=== PATIENT | female | born 1980 ===

== ENCOUNTER 2017-01-09 08:00 | Outpatient (CLI) | payer MEDICAID ==
[2017-01-09 13:23] LABS: BASOPHILS # (AUTO) 0.1 10^3/uL (0.0-0.1); BASOPHILS % (AUTO) 0.8 %; EOSINOPHILS # (AUTO) 0.3 10^3/uL (0.0-0.7); HGB - HEMOGLOBIN 11.4 g/dL (12.0-16.0); LYMPHOCYTES # (AUTO) 1.7 10^3/uL (1.5-3.5); LYMPHOCYTES % (AUTO) 18.8 %; MEAN CORPUSCULAR HEMOGLOBIN 26.5 pg (27.0-31.0); MEAN CORPUSCULAR HGB CONC 32.6 g/dL (32.0-36.0); MEAN CORPUSCULAR VOLUME 81.2 fL (81.0-99.0); MEAN PLATELET VOLUME 8.1 fL (7.9-10.8); MONOCYTES # (AUTO) 0.8 10^3/uL (0.0-1.0); MONOCYTES % (AUTO) 9.2 %; NEUTROPHILS # (AUTO) 6.2 10^3/uL (1.5-6.6); NEUTROPHILS % (AUTO) 68.2 %; RED BLOOD COUNT 4.31 10^6/uL (4.20-5.40); RED CELL DISTRIBUTION WIDTH 16.1 % (12.0-15.0); UNCORRECTED WHITE BLOOD COUNT 9.1 x10^3/uL; WHITE BLOOD COUNT 9.1 x10^3/uL (4.8-10.8)
[2017-01-09 13:42] LABS: THYROID STIMULATING HORMONE 3.02 uIU/mL (0.34-5.60)
[2017-01-09 13:43] LABS: ALBUMIN/GLOBULIN RATIO 1.1 (1.0-2.2); BILIRUBIN,TOTAL 0.2 mg/dL (0.2-1.0); BUN - BLOOD UREA NITROGEN 15 mg/dL (6-20); CARBON DIOXIDE - CO2 20 mmol/L (21-32); CHLORIDE 106 mmol/L (101-111); CHOL/HDL RATIO 7.6 (<4.4); CHOLESTEROL 205 mg/dL; CREATININE 0.7 mg/dL (0.4-1.0); GFR - MDRD 94 (>89); GLUCOSE 94 mg/dL (70-100); HDL CHOLESTEROL 27 mg/dL; LDL/HDL RATIO 3.9 (<4.4); POTASSIUM 4.1 mmol/L (3.5-5.0); SODIUM 133 mmol/L (135-145); TOTAL PROTEIN 7.8 g/dL (6.7-8.2); TRIGLYCERIDES 372 mg/dL; VLDL CHOLESTEROL 74 mg/dL
[2017-01-11 18:36] LABS: ANA SCREEN POSITIVE (NEGATIVE)
== END 2017-01-09 08:01 | disposition home or self-care (01) ==
LOC: LAB.N 08:00
PROVIDERS: ATTEND Family Medicine
DX: E66.9 Obesity, unspecified (principal); E03.9 Hypothyroidism, unspecified; D89.89 Other specified disorders involving the immune mechanism, not elsewhere classified
CPT/HCPCS: 36415; 80053; 80061; 84439; 84443; 85025; 85651; 86038

== ENCOUNTER 2017-11-10 08:00 | Outpatient (CLI) | payer MEDICAID ==
[2017-11-10 13:32] LABS: ALBUMIN 4.3 g/dL (3.2-5.5); ALBUMIN/GLOBULIN RATIO 1.2 (1.0-2.2); BILIRUBIN,TOTAL 0.5 mg/dL (0.2-1.0); CALCIUM 9.2 mg/dL (8.5-10.3); CREATININE 0.8 mg/dL (0.4-1.0); TOTAL PROTEIN 7.9 g/dL (6.7-8.2); URIC ACID 4.8 mg/dL (2.6-7.2)
[2017-11-10 13:57] LABS: BASOPHILS # (AUTO) 0.1 10^3/uL (0.0-0.1); BASOPHILS % (AUTO) 0.9 %; EOSINOPHILS # (AUTO) 0.3 10^3/uL (0.0-0.7); EOSINOPHILS % (AUTO) 3.7 %; HGB - HEMOGLOBIN 13.2 g/dL (12.0-16.0); LYMPHOCYTES # (AUTO) 1.5 10^3/uL (1.5-3.5); LYMPHOCYTES % (AUTO) 19.2 %; MEAN CORPUSCULAR HEMOGLOBIN 30.3 pg (27.0-31.0); MEAN CORPUSCULAR HGB CONC 34.6 g/dL (32.0-36.0); MEAN CORPUSCULAR VOLUME 87.5 fL (81.0-99.0); MEAN PLATELET VOLUME 7.9 fL (7.9-10.8); MONOCYTES # (AUTO) 0.7 10^3/uL (0.0-1.0); MONOCYTES % (AUTO) 8.9 %; NEUTROPHILS # (AUTO) 5.2 10^3/uL (1.5-6.6); NEUTROPHILS % (AUTO) 67.3 %; PLT - PLATELET COUNT 334 10^3/uL (130-450); RED BLOOD COUNT 4.36 10^6/uL (4.20-5.40); RED CELL DISTRIBUTION WIDTH 14.6 % (12.0-15.0); WHITE BLOOD COUNT 7.7 x10^3/uL (4.8-10.8)
== END 2017-11-10 08:01 ==
LOC: LAB.N 08:00
PROVIDERS: ATTEND Family Medicine
DX: E78.1 Pure hyperglyceridemia (principal); M25.50 Pain in unspecified joint; E66.9 Obesity, unspecified
CPT/HCPCS: 36415; 80053; 84550; 85025

== ENCOUNTER 2018-01-29 19:43 | Emergency (ER) | payer MEDICAID ==
--- NOTE | 2018-01-29 20:08 | ED Physician Documentation ---
PD HPI CHEST PAIN - Stated complaint Stated Complaint: CHEST PX - Chief complaint Chief Complaint: Cardiac - History obtained from History obtained from: Patient - History of Present Illness Timing - onset: Yesterday Timing - details: Gradual onset, Waxing and waning Pain level now: 5 Quality: Pressure Location: Substernal Radiation: Back Improved by: Nothing Worsened by: Other (no exacerbating factors) Associated symptoms: Shortness of air, Nausea. No: Vomiting, Palpitations Recently seen: Not recently seen - Additional information Additional information: c/o chest pain since yesterday, radiates to back. Also has several other c/o that have been intermittent x 1 week: nausea, "feeling disconnected" (per patient), diffuse joint pain, back pain, dyspnea. She says she is waiting for a rheumatology referral from [facility] for still other, recurrent symptoms (x many years). Review of Systems Constitutional: reports: Myalgias, Fatigue. denies: Fever, Chills, Sweats Cardiac: reports: Chest pain / pressure. denies: Palpitations, Pedal edema, Calf pain Respiratory: reports: Dyspnea. denies: Cough, Wheezing GI: reports: Nausea. denies: Abdominal Pain, Vomiting : denies: Dysuria, Frequency Skin: denies: Rash Musculoskeletal: reports: Back pain, Joint pain Neurologic: reports: Generalized weakness. denies: Focal weakness, Numbness, Headache PD PAST MEDICAL HISTORY - Past Medical History Past Medical History: No - Past Surgical History Past Surgical History: No - Present Medications Home Medications: Ambulatory Orders Medication Instructions Recorded Confirmed Ibuprofen [Ibu] PRN 01/29/18 raNITIdine [Zantac] PRN PRN 01/29/18 - Allergies Allergies/Adverse Reactions: Allergies Allergy/AdvReac Type Severity Reaction Status Date / Time naproxen Allergy Edema Verified 01/29/18 19:53 codeine AdvReac Unknown Verified 01/29/18 19:53 - Living Situation Living Arrangement: reports: At home PD ED PE NORMAL - Vitals Vital signs reviewed: Yes - General General: Alert and oriented X 3, No acute distress, Well developed/nourished - HEENT HEENT: PERRL, EOMI, Moist mucous membranes - Neck Neck: Supple, no meningeal sign - Cardiac Cardiac: RRR, No murmur, No gallop, No rub - Respiratory Respiratory: No respiratory distress, Clear bilaterally - Abdomen Abdomen: Soft, Non tender - Back Back: No CVA TTP - Derm Derm: Normal color, Warm and dry - Extremities Extremities: No edema - Neuro Neuro: Alert and oriented X 3, metal baler 2-12 intact, No motor deficit, No sensory deficit, Normal speech Eye Opening: Spontaneous Motor: Obeys Commands Verbal: Oriented GCS Score: 15 Results - Vitals Vitals: Vital Signs - 24 hr 01/29/18 01/29/18 01/29/18 19:50 21:12 21:36 Temperature 36.8 C Heart Rate 73 62 66 Respiratory 16 16 18 Rate Blood Pressure 186/113 H 146/95 H 133/92 H O2 Saturation 100 99 98 Oxygen O2 Source Room air - EKG (time done) No standard instances Rate: Rate (enter#) (70) Rhythm: NSR [place]: Normal Intervals: Normal NM QRS: Normal Ischemia: Normal ST segments - Labs Labs: Laboratory Tests 01/29/18 01/29/18 01/29/18 20:10 20:10 20:10 WBC 8.6 RBC 3.84 L Hgb 12.2 Hct 34.3 L MCV 89.2 MCH 31.9 H MCHC 35.7 RDW 14.2 Plt Count 317 MPV 7.3 L Neut # (Auto) 5.3 Lymph # (Auto) 2.0 [place] # (Auto) 1.0 Eos # (Auto) 0.3 Baso # (Auto) 0.1 Absolute Nucleated RBC 0.01 Nucleated RBC % 0.1 D-Dimer Sodium 135 Potassium 3.4 L Chloride 106 Carbon Dioxide 21 Anion Gap 8.0 BUN 16 Creatinine 0.7 Estimated GFR (MDRD) 93 Glucose 96 Calcium 10.2 Total Bilirubin 0.3 AST 21 ALT 17 Alkaline Phosphatase 74 Troponin I < 0.04 Total Protein 7.6 Albumin 4.4 Globulin 3.2 Albumin/Globulin Ratio 1.4 Lipase 51 HCG, Quant Urine Color Urine Clarity Urine pH Ur Specific Eastern Urine Protein Urine Glucose (UA) Urine Ketones Urine Occult Blood Urine Nitrite Urine Bilirubin Urine Urobilinogen Ur Leukocyte Esterase Urine RBC Urine WBC Ur Squamous Epith Cells Urine Bacteria Ur Microscopic Review Urine Culture Comments 01/29/18 01/29/18 01/29/18 20:10 20:18 20:20 WBC RBC Hgb Hct MCV MCH MCHC RDW Plt Count MPV Neut # (Auto) Lymph # (Auto) [place] # (Auto) Eos # (Auto) Baso # (Auto) Absolute Nucleated RBC Nucleated RBC % D-Dimer 234.5 Sodium Potassium Chloride Carbon Dioxide Anion Gap BUN Creatinine Estimated GFR (MDRD) Glucose Calcium Total Bilirubin AST ALT Alkaline Phosphatase Troponin I Total Protein Albumin Globulin Albumin/Globulin Ratio Lipase HCG, Quant 0.73 Urine Color YELLOW Urine Clarity CLEAR Urine pH 6.0 Ur Specific Eastern 1.015 Urine Protein NEGATIVE Urine Glucose (UA) NEGATIVE Urine Ketones NEGATIVE Urine Occult Blood LARGE H Urine Nitrite NEGATIVE Urine Bilirubin NEGATIVE Urine Urobilinogen 0.2 (NORMAL) Ur Leukocyte Esterase NEGATIVE Urine RBC 0-5 Urine WBC 0-3 Ur Squamous Epith Cells FEW Squamous Urine Bacteria Few Ur Microscopic Review INDICATED Urine Culture Comments NOT INDICATED - Rads (name of study) chest xray Radiology: Prelim report reviewed, See rad report PD MEDICAL DECISION MAKING - ED course Complexity details: reviewed results, re-evaluated patient, considered differential, d/w patient Departure - Departure Disposition: 01 Home, Self Care Clinical Impression: Chest pain Condition: Good Instructions: ED Chest Pain Atypical Unkn Cause Follow-Up: Cherrie Jorgensen PA-C [Primary Care Provider] - (Call in the morning to arrange for next available appointment) Discharge Date/Time: 01/29/18 21:44
[2018-01-29 20:33] LABS: BASOPHILS # (AUTO) 0.1 10^3/uL (0.0-0.1); BASOPHILS % (AUTO) 0.9 %; EOSINOPHILS # (AUTO) 0.3 10^3/uL (0.0-0.7); EOSINOPHILS % (AUTO) 3.1 %; HGB - HEMOGLOBIN 12.2 g/dL (12.0-16.0); LYMPHOCYTES % (AUTO) 23.7 %; MEAN CORPUSCULAR HEMOGLOBIN 31.9 pg (27.0-31.0); MEAN CORPUSCULAR HGB CONC 35.7 g/dL (32.0-36.0); MEAN CORPUSCULAR VOLUME 89.2 fL (81.0-99.0); MEAN PLATELET VOLUME 7.3 fL (7.9-10.8); MONOCYTES % (AUTO) 11.2 %; NEUTROPHILS # (AUTO) 5.3 10^3/uL (1.5-6.6); NEUTROPHILS % (AUTO) 61.1 %; PLT - PLATELET COUNT 317 10^3/uL (130-450); RED BLOOD COUNT 3.84 10^6/uL (4.20-5.40); RED CELL DISTRIBUTION WIDTH 14.2 % (12.0-15.0); WHITE BLOOD COUNT 8.6 x10^3/uL (4.8-10.8)
[2018-01-29 20:39] LABS: BILIRUBIN,URINE NEGATIVE (NEGATIVE); GLUCOSE, URINE (UA) NEGATIVE (NEGATIVE); KETONES,URINE (UA) NEGATIVE (NEGATIVE); LEUKOCYTE ESTERASE, URINE NEGATIVE (NEGATIVE); NITRITE,URINE NEGATIVE (NEGATIVE); OCCULT BLOOD,URINE LARGE (NEGATIVE); PROTEIN,URINE NEGATIVE (NEGATIVE); UROBILINOGEN,URINE 0.2 (NORMAL) E.U./dL (NORMAL)
[2018-01-29 20:40] LABS: CLARITY,URINE CLEAR (CLEAR)
[2018-01-29 20:50] LABS: ALBUMIN 4.4 g/dL (3.2-5.5); ALBUMIN/GLOBULIN RATIO 1.4 (1.0-2.2); BILIRUBIN,TOTAL 0.3 mg/dL (0.2-1.0); CALCIUM 10.2 mg/dL (8.5-10.3); CREATININE 0.7 mg/dL (0.4-1.0); TOTAL PROTEIN 7.6 g/dL (6.7-8.2)
--- NOTE | 2018-01-29 20:51 | XRAY Report ---
Reason: chest pain Procedure Date: 01/29/2018 Accession Number: [id number] / [id number] Procedure: XR - Chest 2 View X-Ray CPT Code: 51394 FULL RESULT: EXAM: CHEST RADIOGRAPHY EXAM DATE: 01/29/2018 08:44 PM. CLINICAL HISTORY: Chest pain. COMPARISON: None. TECHNIQUE: 2 views. FINDINGS: Lungs/Pleura: No focal opacities evident. No pleural effusion. No pneumothorax. Normal volumes. Tiny right upper lobe and right lower lobe calcified granulomas are noted. Mediastinum: Heart and mediastinal contours are unremarkable. Other: None. IMPRESSION: 1. No acute pulmonary process. RADIA
[2018-01-29 20:57] LABS: BACTERIA,URINE Few /HPF (None Seen); RBC,URINE 0-5 /HPF (0-5); SQUAMOUS EPITHELIAL CELL,UR FEW Squamous (<= Few)
[2018-01-29 21:37] VITALS: BP 133/92
== END 2018-01-29 21:44 | disposition home or self-care (01) ==
LOC: ED 19:43
DX: R07.9 Chest pain, unspecified (principal)
CPT/HCPCS: 36415; 71046; 80053; 81001; 81003; 83690; 84484; 84702; 85025; 85379; 87086; 93005; 99283; 99284

== ENCOUNTER 2018-05-06 00:25 | Emergency (ER) | payer MEDICAID ==
--- NOTE | 2018-05-06 00:36 | ED Physician Documentation ---
PD HPI URI - Stated complaint Stated Complaint: COUGH/SOA/PX - Chief complaint Chief Complaint: Resp - History obtained from History obtained from: Patient, Family () - History of Present Illness Timing - onset: How many days ago (3) Timing duration: Days (3) Timing details: Abrupt onset, Still present (having fevers, body aches, cough and dyspnea. Worse today.) Associated symptoms: Fever, Nasal congestion, Dry cough, Other (body aches and exac of her fibromyalgia.). No: NVD Contributing factors: Sick contact (her 2 kids had URI symptoms last week, but not as high of fevers nor marked of symptoms.) Similar symptoms before: Has not had sx before Recently seen: Not recently seen Review of Systems Constitutional: reports: Fever, Chills, Myalgias, Fatigue Nose: reports: Congestion Cardiac: denies: Chest pain / pressure, Palpitations Respiratory: reports: Dyspnea, Cough, Wheezing GI: reports: Nausea. denies: Abdominal Pain, Vomiting, Diarrhea Skin: denies: Rash, Lesions Neurologic: reports: Headache. denies: Confused, Altered mental status PD PAST MEDICAL HISTORY - Past Medical History Cardiovascular: None Respiratory: None Neuro: None Endocrine/Autoimmune: None GI: GERD : Kidney stones Musculoskeletal: Fibromyalgia - Past Surgical History Past Surgical History: No /[employer]: Hysterectomy - Present Medications Home Medications: Ambulatory Orders Medication Instructions Recorded Confirmed Ibuprofen [Ibu] PRN 01/29/18 raNITIdine [Zantac] PRN PRN 01/29/18 Albuterol Sulf [Ventolin Hfa 2 - 3 puffs INH Q4HR PRN #1 inhaler 05/06/18 Inhaler] Benzonatate [Tessalon Perle] 100 mg PO TID PRN #30 capsule 05/06/18 Dexamethasone [Decadron] 4 mg PO DAILY #5 tablet 05/06/18 Hydrocodone/Acetaminophen [Swink 1 each PO Q6H PRN #25 tablet 05/06/18 5-325 Tablet] - Allergies Allergies/Adverse Reactions: Allergies Allergy/AdvReac Type Severity Reaction Status Date / Time naproxen Allergy Edema Verified 05/06/18 00:33 codeine AdvReac Unknown Verified 05/06/18 00:33 - Social History Does the pt smoke?: Yes Smoking Status: Current every day smoker Does the pt have substance abuse?: No - Immunizations Immunizations are current?: Yes - POLST Patient has POLST: No PD ED PE NORMAL - Vitals Vital signs reviewed: Yes - General General: Alert and oriented X 3, Well developed/nourished, Other (harsh cough with wheezing) - HEENT HEENT: Ears normal, Moist mucous membranes, Pharynx benign - Neck Neck: Supple, no meningeal sign, No adenopathy - Cardiac Cardiac: RRR, No murmur - Respiratory Respiratory: No: Clear bilaterally (no coarse sounds but does have exp wheezing. ) - Abdomen Abdomen: Soft, Non tender - Derm Derm: Normal color, Warm and dry - Extremities Extremities: No tenderness to palpate, Normal ROM s pain, No edema, No calf tenderness / cord - Neuro Neuro: Alert and oriented X 3, No motor deficit, Normal speech Results - Vitals Vitals: Vital Signs - 24 hr 05/06/18 05/06/18 05/06/18 00:30 01:15 02:38 Temperature 38.2 C H Heart Rate 128 H 112 H 122 H Respiratory 20 18 20 Rate Blood Pressure 124/95 H 150/91 H O2 Saturation 97 97 Oxygen O2 Source Room air - Labs Labs: Laboratory Tests 05/06/18 01:10 Influenza A (Rapid) Negative Influenza B (Rapid) Negative - Rads (name of study) chest xray Radiology: Prelim report reviewed (no infiltrates), EMP read contemporaneously, See rad report PD MEDICAL DECISION MAKING - ED course Complexity details: reviewed results, re-evaluated patient (improved with neb treatment and meds. ), considered differential, d/w patient Departure - Departure Disposition: 01 Home, Self Care Clinical Impression: Upper respiratory infection Qualifiers: URI type: unspecified URI Qualified Code(s): J06.9 - Acute upper respiratory infection, unspecified Chest pain Qualifiers: Chest pain type: other chest pain Qualified Code(s): R07.89 - Other chest pain Condition: Stable Record reviewed to determine appropriate education?: Yes Instructions: ED URI Viral W Wheezing Follow-Up: Devon Black MD [Primary Care Provider] - Prescriptions: Albuterol Sulf [Ventolin Hfa Inhaler] 2 - 3 puffs INH Q4HR PRN #1 inhaler PRN Reason: Shortness Of Air/Wheezing Benzonatate [Tessalon Perle] 100 mg PO TID PRN #30 capsule PRN Reason: Cough Dexamethasone [Decadron] 4 mg PO DAILY #5 tablet Hydrocodone/Acetaminophen [[place] 5-325 Tablet] 1 each PO Q6H PRN #25 tablet PRN Reason: Pain Comments: Use the albuterol inhaler 2-3 puffs 4 times a day for the next week and extra times as needed. Decadron steroid anti-inflammatory to reduce bronchial inflammation and therefore better breathing and less cough. Tessalon if needed for cough. Add hydrocodone if needed for pain or cough. Recheck if not improving over the next several days but I would anticipate some degree of illn ess and cough for even a week or so. Discharge Date/Time: 05/06/18 03:27
[2018-05-06] MEDS ORDERED: ALBUTEROL NEB 2.5 MG/3 ML INH STA (00:55)
[2018-05-06] MEDS ORDERED: BENZONATATE 100 MG CAPSULE PO STA (01:03)
[2018-05-06] MEDS ORDERED: HYDROcod/ACETAM 5/325 MG TABLET PO STA (01:03)
[2018-05-06] MEDS ORDERED: DEXAMETHASONE 10 MG/ML VIAL PO STA (01:03)
[2018-05-06] MEDS ORDERED: CHERRY SYRUP 10 ML UDC PO ONE (01:57)
--- NOTE | 2018-05-06 02:29 | XRAY Report ---
Reason: cough and wheezing Procedure Date: 05/06/2018 Accession Number: [id number] / [id number] Procedure: XR - Chest 2 View X-Ray CPT Code: 20275 FULL RESULT: EXAM: CHEST RADIOGRAPHY EXAM DATE: 05/06/2018 02:07 AM. CLINICAL HISTORY: Cough and wheezing. COMPARISON: CHEST 2 VIEW 01/29/2018 8:36 PM. TECHNIQUE: 2 views. FINDINGS: Lungs/Pleura: No focal opacities evident. No pleural effusion. No pneumothorax. Normal volumes. Mediastinum: Heart and mediastinal contours are unremarkable. Other: None. IMPRESSION: Stable normal appearance of the chest. RADIA
[2018-05-06 02:39] VITALS: BP 150/91
[2018-05-06] MEDS ORDERED: ONDANSETRON ODT 4 MG Prepack 2 TL PRN (02:59)
[2018-05-06] MEDS ORDERED: HYDROcod/ACET 5/325 Prepack 4 PO STA (02:59)
== END 2018-05-06 03:27 | disposition home or self-care (01) ==
LOC: ED 00:25
DX: J06.9 Acute upper respiratory infection, unspecified (principal); R07.89 Other chest pain; F17.200 Nicotine dependence, unspecified, uncomplicated
CPT/HCPCS: 71046; 87275; 87276; 94640; 99283; A9270